=== PATIENT | male | born 1970 | race African-American/Black ===

== ENCOUNTER 2024-12-14 07:03 | Inpatient (IN) | payer MEDICAID ==
[~2024-12-14] VITALS: Ht 193 cm; Wt 136.1 kg
[2024-12-14] MEDS ORDERED: inhaler (07:15)
[2024-12-14 07:42] LABS: BASOPHILS # (AUTO) 0.1 K/UL (0.0-0.2); BASOPHILS % (AUTO) 0.8 % (0.0-2.0); EOSINOPHILS # (AUTO) 0.1 K/uL (0.0-0.7); EOSINOPHILS % (AUTO) 1.9 % (0.0-7.0); HEMATOCRIT 42.2 % (36.7-47.1); HEMOGLOBIN 14.2 g/dL (12.5-16.3); LYMPHOCYTES # (AUTO) 2.3 K/uL (0.8-4.8); LYMPHOCYTES % (AUTO) 32.3 % (20.5-51.5); MEAN CORPUSCULAR HEMOGLOBIN 29.5 uug (23.8-33.4); MEAN CORPUSCULAR HGB CONC 34 g/dL (32.5-36.3); MEAN CORPUSCULAR VOLUME 87.3 fL (73.0-96.2); MONOCYTES # (AUTO) 0.5 K/uL (0.1-1.30); MONOCYTES % (AUTO) 7.6 % (0.0-11.0); NEUTROPHILS % (AUTO) 57.4 % (38.5-71.5); PLATELET COUNT (AUTO) 273 K/uL (152-348); RED BLOOD CELL COUNT(AUTO) 4.84 MIL/uL (4.06-5.63); RED CELL DISTRIBUTION WIDTH 13.6 % (12.1-16.2)
[2024-12-14 07:44] LABS: DIFFERENTIAL COMMENT 1
[2024-12-14 07:54] LABS: CALCIUM 9.2 mg/dL (8.5-10.1); CARBON DIOXIDE 25 mmol/L (21-32); CHLORIDE 103 mmol/L (98-107); CREATININE 1.2 mg/dL (0.6-1.3); GLUCOSE 108 mg/dL (74-106); POTASSIUM 3.8 mmol/L (3.5-5.1); SODIUM SERUM 139 mmol/L (136-145); UREA NITROGEN, BLOOD 14 mg/dL (7-18)
[2024-12-14] MEDS ORDERED: PANTOPRAZOLE SODIUM 40 MG VIAL ONE (07:54)
[2024-12-14] MEDS ORDERED: METOCLOPRAMIDE HCL 10 MG/2 ML VIAL ONE (07:54)
[2024-12-14] MEDS: METOCLOPRAMIDE HCL 10 MG/2 ML VIAL IV ONE (07:58)
[2024-12-14] MEDS: PANTOPRAZOLE SODIUM IV 40 MG in IV DEXTROSE 5% 100 ML IV ONE (07:58)
[2024-12-14 08:07] LABS: ALANINE AMINOTRANSFERASE 41 U/L (16-63); ALBUMIN 3.6 g/dL (3.4-5.0); ALKALINE PHOSPHATASE 83 U/L (50-136); ASPARTATE AMINOTRANSFERASE 35 U/L (15-37); BILIRUBIN,DIRECT 0.1 mg/dL (0.0-0.2); BILIRUBIN,TOTAL 0.4 mg/dL (0.2-1.0); NT-PRO BNP 72 pg/mL (0-125); TOTAL PROTEIN, SERUM 8.2 g/dL (6.4-8.2)
[2024-12-14] MEDS ORDERED: ASPIRIN EC 81 MG TABLET.DR PO ONE (08:42)
[2024-12-14] MEDS ORDERED: ACETAMINOPHEN 325 MG TABLET PO PRN (08:45)
[2024-12-14] MEDS ORDERED: ONDANSETRON 4 MG/2 ML VIAL IV PRN (08:45)
[2024-12-14] MEDS ORDERED: MAGNESIUM HYDROXIDE 30 ML LIQUID UDC PO PRN (08:45)
[2024-12-14] MEDS ORDERED: NITROGLYCERIN 0.4 MG/TAB BOTTLE SL PRN (08:45)
[2024-12-14] MEDS: ASPIRIN 81 MG TAB.CHEW PO ONE (08:45)
[2024-12-14] MEDS: MORPHINE SULFATE 4 MG/1 ML DISP.SYRIN IV PRN (11:13)
[2024-12-14] MEDS ORDERED: ALBU6.7H9 INH (12:48)
[2024-12-14] MEDS ORDERED: ACET325T53 PO (12:49)
[2024-12-14] MEDS ORDERED: CHLO1TAB34 PO (13:05)
[2024-12-14 15:30] VITALS: BP 152/100; TEMP 97.5; O2SAT 100
[2024-12-14 19:30] VITALS: BP 170/110; TEMP 97.5; O2SAT 100
[2024-12-14 20:00] VITALS: BP 172/110; TEMP 97.5; O2SAT 99
[2024-12-14 21:00] VITALS: BP 170/110; TEMP 97.5; O2SAT 99
[2024-12-14 22:15] VITALS: BP 140/100; TEMP 97.5; O2SAT 100
[2024-12-15] MEDS ORDERED: PANTOPRAZOLE SODIUM 40 MG TABLET.DR PO SCH (07:00)
[2024-12-15] MEDS ORDERED: ASPIRIN EC 81 MG TABLET.DR PO SCH (09:00)
== END 2024-12-14 23:00 | disposition left against medical advice (07) | DRG 198 ==
LOC: ER 07:03 → TELE3 10:35
DX: I24.9 Acute ischemic heart disease, unspecified (principal); E66.9 Obesity, unspecified; Z71.3 Dietary counseling and surveillance; Z68.36 Body mass index [BMI] 36.0-36.9, adult; J45.909 Unspecified asthma, uncomplicated; Z86.19 Personal history of other infectious and parasitic diseases; Z79.899 Other long term (current) drug therapy; R10.13 Epigastric pain; Z53.29 Procedure and treatment not carried out because of patient's decision for other reasons
CPT/HCPCS: 36415; 71045; 84484; 85025; 85730; 93307; A4606; A4663; G0378; J2270; J2470; J2765